=== PATIENT | male | born 2000 | race Caucasian/White ===

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

== ENCOUNTER 2018-07-19 23:56 | Emergency (ER) | payer BC, OTHER ==
[2018-07-20 00:15] VITALS: BP 133/73
[2018-07-20] MEDS ORDERED: Acetaminophen/HYDROcodone 325-5 MG Tab PO ONE (00:32)
[2018-07-20] MEDS ORDERED: Sodium Chloride 0.9% 500 ML ONE (00:32)
--- NOTE | 2018-07-20 00:33 | EDM.PDOC ---
ED HPI GENERAL MEDICAL PROBLEM - General Chief Complaint: ENT Problem Stated Complaint: cant open eyes Time Seen by Provider: 07/20/18 00:11 Source of Information: Reports: Patient, RN Notes Reviewed - History of Present Illness INITIAL COMMENTS - FREE TEXT/NARRATIVE: 17-year-old male comes in with bilateral eye discomfort. This all started about 90 minutes ago. He now has severe pain both eyes. Unable to keep eyes open at this time, light does make the discomfort more unbearable. 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 there would've been some exposure to the UV light of welding. Not using eye protection. He does not recall getting anything into either eye but states that is really what it feels like. He does not wear contacts. He has not otherwise been ill. Bilateral Eye Pain Score (Numeric/FACES): 9 - Related Data Allergies Allergy/AdvReac Type Severity Reaction Status Date / Time No Known Allergies Allergy Verified 07/20/18 00:14 Home Meds: Home Meds Acetaminophen/HYDROcodone [[place] 325-5 MG] 1 tab PO Q6H PRN #10 tablet 07/20/18 [Rx] Past Medical History - Past Health History Medical/Surgical History: Denies Medical/Surgical History Respiratory History: Reports: Asthma Musculoskeletal History: Reports: Fracture - Infectious Disease History Infectious Disease History: Reports: None Social & Family History - Family History Family Medical History: Unobtainable - Tobacco Use Smoking Status *Q: Current Every Day Smoker Years of Tobacco use: 1 Packs/Tins Daily: 1 - Caffeine Use Caffeine Use: Reports: Soda - Recreational Drug Use Recreational Drug Use: Yes Drug Use in Last 12 Months: Yes Recreational Drug Type: Reports: Heroin, Marijuana/Hashish, Methamphetamine Other Recreational Drug Type: pt stated "just about everything" Recreational Drug Use Frequency: Not Used In Over 6 Months - Living Situation & Occupation Living situation: Reports: Single Occupation: Student ED ROS ENT - Review of Systems Review Of Systems: See Below Constitutional: Reports: No Symptoms HEENT: Reports: Other (Severe bilateral eye discomfort and light sensitivity) Respiratory: Denies: Shortness of Breath Cardiovascular: Denies: Chest Pain GI/Abdominal: Denies: Nausea, Vomiting Skin: Denies: Rash Neurological: Denies: Headache ED EXAM, ENT - Physical Exam Exam: See Below General Appearance: Alert, Moderate Distress Eye Exam: Bilateral Eye: Conjunctival Injection (Note unable to examine eyes on until anesthetized with topical proparacaine drops), PERRL Mouth/Throat: Normal Inspection Head: Atraumatic. No: Facial Swelling Neck: Supple Respiratory/Chest: No Respiratory Distress Skin: Warm, Dry, Normal Color, No Rash Course - Vital Signs Last Recorded V/S: Last Vital Signs Temp 97.5 F 07/20/18 00:11 Pulse 65 07/20/18 00:11 Resp 18 07/20/18 00:11 BP 133/73 07/20/18 00:11 Pulse Ox 98 07/20/18 00:11 - Orders/Labs/Meds Meds: Medications Discontinued Medications Generic Name Dose Route Start Last Admin Trade Name Daiana PRN Reason Stop Dose Admin Hydrocodone Bitart/Acetaminophen 1 tab 07/20/18 00:32 [place] 325-5 Mg PO 07/20/18 00:33 ONETIME ONE - Re-Assessments/Exams Free Text/Narrative Re-Assessment/Exam: 07/20/18 00:39 No foreign body visible on exam both eyes. As noted was unable to even examine his eyes until topical proparacaine drops used bilateral. With the drops he had total relief of his discomfort very quickly. With slit-lamp exam slight edema both cornea compatible with UV welding exposure. Patient still does not understand how it happened. States he is around welders "every day" and this has not happened for a long time. However I did also explain to him the chance of foreign body causing onset of discomfort each eye at the same time to this degree of severity would be an extreme consequence and no foreign body visible either eye. Discharge instructions as documented. Departure - Departure Time of Disposition: 00:40 Disposition: Home, Self-Care 01 Condition: Fair Clinical Impression: Keratitis - Discharge Information Prescriptions: Acetaminophen/HYDROcodone [[place] 325-5 MG] 1 tab PO Q6H PRN #10 tablet PRN Reason: Pain Instructions: Ultraviolet Keratitis, [id number], Eye Foreign Body, Easy-to- Read Referrals: PCP,None [Primary Care Provider] - Forms: ED Department Discharge, ED Return to Work/School Form Additional Instructions: Advil or ibuprofen 600 mg every 6-8 hours as needed for pain and inflammation, take Tylenol in between doses for extra pain relief or hydrocodone if needed for severe pain. Do not take Tylenol and hydrocodone at the same time. Do not drive or work when taking hydrocodone. It is recommended you do not work today, you should be able to return to work tomorrow. Follow-up with an eye Dr. if eye discomfort has not fairly well resolved by tomorrow as expected.
[2018-07-20] MEDS ORDERED: Sodium Chloride 0.9% 500 ML IV ONE (00:38)
== END 2018-07-20 01:32 | disposition home or self-care (01) ==
LOC: JD.ED 23:56
DX: H16.9 Unspecified keratitis (principal); F17.210 Nicotine dependence, cigarettes, uncomplicated
CPT/HCPCS: 99283; A9270; J7040

== ENCOUNTER 2022-06-06 08:35 | Emergency (ER) | payer BC ==
[2022-06-06 08:43] VITALS: PULSE 101
[2022-06-06 08:46] VITALS: BP 148/77
[2022-06-06] MEDS ORDERED: HYDROmorphone 1 MG/ML Syringe IVPUSH ONE ×2 (09:14→10:52)
[2022-06-06] MEDS ORDERED: Metoclopramide 10 MG/2 ML SDV IVPUSH ONE (09:14)
[2022-06-06] MEDS ORDERED: Dextrose 5%-0.9% NaCl 1,000 ML IV SCH (09:15)
== END 2022-06-06 12:38 | disposition home or self-care (01) ==
LOC: JD.ED 08:35
DX: S62.022A Displaced fracture of middle third of navicular [scaphoid] bone of left wrist, initial encounter for closed fracture (principal); S80.211A Abrasion, right knee, initial encounter; S80.212A Abrasion, left knee, initial encounter; J45.909 Unspecified asthma, uncomplicated; Z72.0 Tobacco use; W13.2XXA Fall from, out of or through roof, initial encounter; Y93.39 Activity, other involving climbing, rappelling and jumping off
CPT/HCPCS: 73110; 96365; 96366; 96375; 96376; 99283; J1170; J2765; J7042

== ENCOUNTER 2022-06-11 17:56 | Emergency (ER) | payer BC ==
[2022-06-11 19:27] VITALS: BP 166/101; PULSE 85
[2022-06-11] MEDS ORDERED: Ibuprofen 800 MG Tab PO ONE (20:00)
== END 2022-06-11 20:37 | disposition home or self-care (01) ==
LOC: JD.ED 17:56
DX: M25.532 Pain in left wrist (principal); S62.002D Unspecified fracture of navicular [scaphoid] bone of left wrist, subsequent encounter for fracture with routine healing; F17.210 Nicotine dependence, cigarettes, uncomplicated; Z79.899 Other long term (current) drug therapy
CPT/HCPCS: 99283; A9270

== ENCOUNTER 2022-06-24 20:59 | Emergency (ER) | payer BC ==
[2022-06-24 23:13] VITALS: BP 148/96; PULSE 92
== END 2022-06-25 00:12 | disposition home or self-care (01) ==
LOC: JD.ED 20:59
DX: G89.18 Other acute postprocedural pain (principal); Z79.899 Other long term (current) drug therapy; Z86.16 Personal history of COVID-19; Z87.891 Personal history of nicotine dependence
CPT/HCPCS: 99283

== ENCOUNTER 2025-03-10 23:11 | Emergency (ER) | payer OTHER, BC ==
[2025-03-11 00:39] VITALS: BP 151/89; PULSE 108
== END 2025-03-11 00:30 | disposition home or self-care (01) ==
LOC: JD.ED 23:11
DX: S50.02XA Contusion of left elbow, initial encounter (principal); S30.0XXA Contusion of lower back and pelvis, initial encounter; S50.812A Abrasion of left forearm, initial encounter; S90.512A Abrasion, left ankle, initial encounter; Z79.899 Other long term (current) drug therapy; Z86.16 Personal history of COVID-19; V29.098A Other motorcycle driver injured in collision with other motor vehicles in nontraffic accident, initial encounter; Y93.89 Activity, other specified
CPT/HCPCS: 99283